=== PATIENT | female | born 1955 | race Caucasian/White ===

== ENCOUNTER 2019-11-17 19:18 | Emergency (ER) | payer BC, OTHER ==
--- OUTSIDE RECORDS SUMMARY | 2019-11-17 19:20 | XMS REPORT | Clinical Summary ---
:1955 Author Organization [facility] Address [address] [place] [address] Care Team Providers Name Role Phone MD Torri Primary Care Provider Allergies Active Allergy Reactions Severity Noted Date Comments Sulfa (Sulfonamide Antibiotics) Anaphylaxis High 8 Medications Medication Sig Dispensed Refills Start Date End Date Status furosemide (LASIX) 20 Take 20 mg by 0 Active mg tablet mouth daily. metoprolol succinate XL Take 50 mg by 0 Active (TOPROL-XL) 50 mg 24 hr mouth daily. tablet dronedarone (MULTAQ) Take 400 mg by 0 Active 400 mg tablet mouth 2 (two) times a day. rivaroxaban (XARELTO) Take 15 mg by 0 Active 15 mg tablet mouth daily. multivitamin with Take 1 tablet by 0 Active minerals tablet mouth daily. Active Problems Problem Noted Date AF (paroxysmal atrial fibrillation) 01/28/2018 Social History Tobacco Use Types Packs/Day Years Used Date Never Smoker Smokeless Tobacco: Never Used Sex Assigned at Date Recorded Not on file Job Start Date Occupation Industry Not on file Not on file Not on file Travel History Travel Start Travel End No recent travel history available. 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
--- OUTSIDE RECORDS SUMMARY | 2019-11-17 19:21 | XMS REPORT | Continuity of Care Document ---
:1955 Author Organization [facility] t Address [address] [place] [address] Care Team Providers Name Role Phone Torri CHAWLA Primary Care Physician Payers Payer Name Policy Type Policy Number Effective Date Expiration Date S ource Problems Condition Condition Condition Status Onset Resolution Last Treating Co mments Source Name Details Category Date Date Treatment Clinician Date AF AF Disease Active 2017-04 [place] (paroxysma (paroxysma 0-12 Me thodi l atrial l atrial 00:00: st fibrillati fibrillati 00 on) on) Allergies, Adverse Reactions, Alerts Allergy Allergy Status Severity Reaction(s) Onset Inactive Treating Comm ents Source Name Type Date Date Clinician Sulfa DA Active [facility] (Sulfona 3-31 [facility] S[facility] DA Active 2018-04 [facility] (Sulfona 1-16 [facility] 00:[facility] Sulfa DA Active SV 2018-04 [facility] ([place]ulf[place] 1-06 [place] mide 00:00: [facility] Antibiot 00 [facility] Sulfa Propensi Active Anaphylaxis 2017-04 [place] (Sulfona ty to 0-12 Methodi mide adverse 00:00: st Antibiot reaction 00 ics) s to drug Social History Social Habit Start Date Stop Date Quantity Comments Source Sex Assigned At [facility] [employer] Smoking Status Start Date Stop Date Source Never smoker [place] t Medications Ordered Filled Start Stop Current Ordering Indication Dosage Frequency Signature Comments Components Source Medication Medication Date Date Medication? Clinician (SIG) Name Name furosemide 2017-04 Yes 20mg QD Take 20 mg [place] (LASIX) 20 0-13 by mouth [place] di mg tablet 11:23: daily. st 43 metoprolol 2017-04 Yes 50mg QD Take 50 mg [place] succinate 0-13 by mouth Method i XL 11:23: daily. st (TOPROL-XL) 43 50 mg 24 hr tablet dronedarone 2017-04 Yes 400mg Q.5D Take 400 [place] (MULTAQ) 0-13 mg by [facility] 400 mg 11:23: mouth 2 st tablet 43 (two) times a day. rivaroxaban 2017-04 Yes 15mg QD Take 15 mg [place] (XARELTO) 0-13 by mouth Method i 15 mg 11:23: daily. st tablet 43 multivitami 2017-04 Yes 1{tbl} QD Take 1 [place] with 0-13 tablet by [facility] minerals 11:23: mouth st tablet 43 daily. Procedures This patient has no known procedures. Plan of Care Planned Activity Planned Date Details Comments Source Future Scheduled 2019-11-18 INFLUENZA VACCINE [place] [facility] Test 00:00:00 [code = INFLUENZA VACCINE] Future Scheduled 2018 65+ PNEUMOCOCCAL [place] [employer] [facility] Test 00:00:00 VACCINE (1 of 2 - PCV13) [code = 65+ PNEUMOCOCCAL VACCINE (1 of 2 - PCV13)] Future Scheduled 2003-06-21 BREAST CANCER [facility] Test 00:00:00 SCREENING [code = BREAST CANCER SCREENING] Future Scheduled 2003-06-21 COLONOSCOPY SCREENING [place] [facility] Test 00:00:00 [code = COLONOSCOPY SCREENING] Future Scheduled 2003-06-21 SHINGLES VACCINES (#1) [place] [facility] Test 00:00:00 [code = SHINGLES VACCINES (#1)] Results Test Description Test Time Test Comments Results Result Sourc e Comments - CT ABD PELVIS 2019-07-18 Name: BRITNEY BETH W/STEPHANIE 15:51:00 [facility] : 1955 Age/S: 64 / F [address] [place] [address] Unit #: [id number] Loc: [place] [address] Phys: Livan Alonso MD Acct: [id number] Dis Date: Status: REG [facility] PHONE #: [phone] Exam Date: 07/18/20191336 FAX #: [phone] Reason: GASTRIC STENOSIS EXAMS: CPT CODE: [id number] CT ABD PELVIS W/CONT 82836 CT ABDOMEN AND PELVIS WITH CONTRAST HISTORY: GASTRIC STENOSIS TECHNIQUE: Helical scan of the abdomen and pelvis was performed from the domes of the diaphragm through the symphysis. Reformatted sagittal and coronal images are included. IV CONTRAST: 100 cc Isovue 300. ORAL CONTRAST: 10 mL Gastrografin diluted with 900 mL water. DLP: 359 mGy-cm COMPARISON: None. FINDINGS: LOWER CHEST: The lung bases are clear. No pleural abnormality. Included mediastinum is grossly normal. LIVER: Multiple hepatic cysts are noted. Otherwise normal appearance of the liver. GALLBLADDER: The gallbladder is absent. SPLEEN: Normal appearance of the spleen. PANCREAS: Normal. ADRENALS: Normal. KIDNEYS: Incidental small left renal cyst measures less than 1 cm. The kidneys are otherwise unremarkable. BOWEL, MESENTERY: Evidence of gastric bypass surgery with multiple clips. No evidence of acute bowel pathology. There is suggestion of constipation. APPENDIX: The appendix is not directly visualized. PERITONEUM: No significant free fluid or extraluminal gas. RETROPERITONEUM: No significant inflammation, mass or adenopathy. Mild atheromatous calcifications noted. No aneurysm. ABDOMINAL WALL: No significant abnormality. PAGE 1 Signed Report (CONTINUED) Name: BRITNEY BETH [facility] : 1955 Age/S: 64 / F [address] [place] [address] Unit #: [id number] Loc: [place] [address] Phys: Livan Alonso MD Acct: [id number] Dis Date: Status: REG [facility] PHONE #: [phone] Exam Date: 07/18/20191336 FAX #: [phone] Reason: GASTRIC STENOSIS EXAMS: CPT CODE: [id number] CT ABD PELVIS W/CONT 67238 <Continued> PELVIS: Absent uterus. Normal appearance of the urinary bladder. No mass, inflammatory change, lymphadenopathy or significant free fluid. No significant inguinal abnormality. MUSCULOSKELETAL: Other than degenerative changes, the bones are intact. IMPRESSION: No acute finding. Hepatic and left renal cysts. Gastric bypass, cholecystectomy, hysterectomy. Constipation. Scoliosis, advanced spondylosis. SL: [id number] at 1551 Reported and signed by: Triston Alvarez M.D. CC: Livan Alonso MD; Ephraim Wild MD Technologist:Ziyad Fletcher, RT(R)(CT) CTDI: DLP: Trnscb Date/Time: 07/18/2019 (6446) [email or web address] Orig Print D/T: S: 07/18/2019 (5687) PAGE 2 Signed Report - XR CHEST 2 V 2019-07-18 FAX: Livan Alonso 10:51:00 H [phone] [place]: St: REG FAX: Ephraim Sarah [phone] Name: BRITNEY BETH [facility] : 1955 Age/S: 64/F [address] [place] [address] Unit #: [id number] Loc: [place] [address] Phys: Livan Alonso MD Acct: [id number] Dis Date: Status: REG [facility] PHONE #: [phone] Exam Date: 07/18/2019 1040 FAX #: [phone] Reason: PRE-OP EGD EXAMS: CPT CODE: [id number] XR CHEST 2 V 00072 Chest 2 view 07/18/2019 HISTORY: Preoperative exam for gastric stenosis No prior exams are available for comparison FINDINGS: No consolidation or pleural effusion is present. Heart size is normal. Aorta is grossly unremarkable. There is no significant vascular congestion or interstitial edema. Right curvature of the lower thoracic spine is present. There are moderate degenerative changes in the mid and lower thoracic spine. There are surgical clips in the right upper quadrant. IMPRESSION: No acute cardiopulmonary process identified. SL: [id number] at 1051 Reported and signed by: Sin Logan M.D. CC: Livan Alonso MD; Ephraim Wild MD Technologist: RT Brant(Rebekah)(M) Trnscrd Date/Time/By: 07/18/2019 (4932) : By: [email or web address] Orig Print D/T: S: 07/18/2019 (9083) PAGE 1 Signed Report BASIC METABOLIC PANEL 2019-07-18 10:10:00 Test Item Value Reference Range Interpretation Comme nts SODIUM (test code = NA) 145 mEq/L 134-147 N POTASSIUM (test code = K) 4.5 mEq/L 3.4-5.0 N CHLORIDE (test code = CL) 114 mEq/L 100-108 H CARBON DIOXIDE (test code = CO2) 28 mEq/L 21-33 N ANION GAP (test code = GAP) 8 0-20 N GLUCOSE (test code = GLU) 88 mg/dL 70-110 N BLOOD UREA NITROGEN (test code = 12 mg/dL 7-18 N BUN) GLOMERULAR FILTRATION RATE (test 62.6 80-90 L Units of measure = ml/min/1.73 code = GFR) m2 CREATININE (test code = CREAT) 0.9 mg/dL 0.6-1.3 N CALCIUM (test code = CA) 8.8 mg/dL 8.0-10.5 N CBC W/AUTO [id number] 09:55:00 Test Item Value Reference Range Interpretation Comments WHITE BLOOD CELL (test code = 4.36 x10 3/uL 4.5-11.0 L WBC) RED BLOOD CELL (test code = 3.84 x10 6/uL 3.54-5.02 N RBC) HEMOGLOBIN (test code = HGB) 10.9 g/dL 11.0-15.0 L HEMATOCRIT (test code = HCT) 35.7 % 33.0-45.0 N MEAN CELL VOLUME (test code = 93.0 fL 81.0-99.0 N MCV) MEAN CELL HGB (test code = MCH) 28.4 pg 27.0-33.0 N MEAN CELL HGB CONCETRATION 30.5 g/dL 33.0-37.0 L (test code = MCHC) RED CELL DISTRIBUTION WIDTH CV 15.9 % 11.5-14.5 H (test code = RDW) RED CELL DISTRIBUTION WIDTH SD 54.7 fL 37.0-54.0 H (test code = RDW-SD) PLATELET COUNT (test code = 232 x10 3/uL 150-400 N PLT) MEAN PLATELET VOLUME (test code 9.0 fL 7.0-9.0 N = MPV) NEUTROPHIL % (test code = NT%) 43.6 % 56.0-77.0 L IMMATURE GRANULOCYTE % (test 0.2 % 0.0-2.0 N code = IG%) LYMPHOCYTE % (test code = LY%) 39.9 % 14.0-32.0 H MONOCYTE % (test code = MO%) 11.0 % 4.8-9.0 H EOSINOPHIL % (test code = EO%) 3.7 % 0.3-3.7 N BASOPHIL % (test code = BA%) 1.6 % 0.0-2.0 N NUCLEATED RBC % (test code = 0.0 % 0-0 N NRBC%) NEUTROPHIL # (test code = NT#) 1.90 x10 3/uL 2.0-7.6 L IMMATURE GRANULOCYTE # (test 0.01 x10 3/uL 0.00-0.03 N code = IG#) LYMPHOCYTE # (test code = LY#) 1.74 x10 3/uL 1.0-3.8 N MONOCYTE # (test code = MO#) 0.48 x10 3/uL 0.1-0.8 N EOSINOPHIL # (test code = EO#) 0.16 x10 3/uL 0.0-0.2 N BASOPHIL # (test code = BA#) 0.07 x10 3/uL 0.0-0.2 N NUCLEATED RBC # (test code = 0.00 x10 3/uL 0.0-0.1 N NRBC#) MANUAL DIFF REQUIRED (test code NO = MDIFF) CBC W/AUTO [id number] 09:55:00 Test Item Value Reference Range Interpretation Comments WHITE BLOOD CELL (test code = 4.36 x10 3/uL 4.5-11.0 L WBC) RED BLOOD CELL (test code = 3.84 x10 6/uL 3.54-5.02 N RBC) HEMOGLOBIN (test code = HGB) 10.9 g/dL 11.0-15.0 L HEMATOCRIT (test code = HCT) 35.7 % 33.0-45.0 N MEAN CELL VOLUME (test code = 93.0 fL 81.0-99.0 N MCV) MEAN CELL HGB (test code = MCH) 28.4 pg 27.0-33.0 N MEAN CELL HGB CONCETRATION 30.5 g/dL 33.0-37.0 L (test code = MCHC) RED CELL DISTRIBUTION WIDTH CV 15.9 % 11.5-14.5 H (test code = RDW) RED CELL DISTRIBUTION WIDTH SD 54.7 fL 37.0-54.0 H (test code = RDW-SD) PLATELET COUNT (test code = 232 x10 3/uL 150-400 N PLT) MEAN PLATELET VOLUME (test code 9.0 fL 7.0-9.0 N = MPV) NEUTROPHIL % (test code = NT%) 43.6 % 56.0-77.0 L IMMATURE GRANULOCYTE % (test 0.2 % 0.0-2.0 N code = IG%) LYMPHOCYTE % (test code = LY%) 39.9 % 14.0-32.0 H MONOCYTE % (test code = MO%) 11.0 % 4.8-9.0 H EOSINOPHIL % (test code = EO%) 3.7 % 0.3-3.7 N BASOPHIL % (test code = BA%) 1.6 % 0.0-2.0 N NUCLEATED RBC % (test code = 0.0 % 0-0 N NRBC%) NEUTROPHIL # (test code = NT#) 1.90 x10 3/uL 2.0-7.6 L IMMATURE GRANULOCYTE # (test 0.01 x10 3/uL 0.00-0.03 N code = IG#) LYMPHOCYTE # (test code = LY#) 1.74 x10 3/uL 1.0-3.8 N MONOCYTE # (test code = MO#) 0.48 x10 3/uL 0.1-0.8 N EOSINOPHIL # (test code = EO#) 0.16 x10 3/uL 0.0-0.2 N BASOPHIL # (test code = BA#) 0.07 x10 3/uL 0.0-0.2 N NUCLEATED RBC # (test code = 0.00 x10 3/uL 0.0-0.1 N NRBC#) MANUAL DIFF REQUIRED (test code NO = MDIFF) - MRI C-SPINE W/O [id number] 13:20:00 Patient Name: BRITNEY BETH Unit No: [id number] EXAMS: CPT CODE: [id number] MRI C-SPINE W/O CONT [id number] TECHNIQUE: Multiplanar, multisequence MRI examination performed of the cervical spine without intravenous contrast material. COMPARISON: None available. FINDINGS: Alignment: Grade 1 spondylolisthesis of C4-C5 and C7-T1. Grade 1 retrolisthesis of C5-C6 Bone Lesion / Fracture: None present. CervicalSpinal Cord: No cord expansion or abnormal signal. Prevertebral / Paraspinal Soft Tissues: Unremarkable. C2/3: Severe bilateral facet hypertrophy is present. There is moderate left, mild right foraminal stenosis as well as mild central canal stenosis. C3/4: Right asymmetric disc bulge osteophyte complex. Bilateral facet and uncovertebralhypertrophy are greater on the right. There is mild left, severe right foraminal stenosis as well as moderate central canal stenosis. C4/5: Grade 1 spondylolisthesis. Right asymmetric disc bulge. Right-sided facet hypertrophy and fusion. There is mild to moderateright foraminal stenosis. No significant left foraminal stenosis. Mild central canal stenosis is present. C5/6: Grade 1 retrolisthesis. Diffuse disc bulge osteophyte complex is noted as well as severe bilateral facet and uncovertebral hypertrophy. There is moderate to severe left, severe right foraminal stenosis as well as severe central canal stenosis. C6/7: No significant disc bulge or herniation. Broad disc bulge osteophyte complex is noted as well as severe bilateral uncovertebral hypertrophy and right- sided facet degeneration. Moderate bilateral foraminal stenosis is present as well as moderate to severe central canal stenosis. C7/T1: Grade 1 spondylolisthesis. Diffuse disc bulge is noted as well as moderate bilateral facet hypertrophy. There is mild central canal stenosis as well as mild bilateral foraminal narrowing. IMPRESSION: Advanced multilevel cervical spondylosis, greatest at C5-C6, where there is severe central canal stenosis. at 1320 Reported and signed by: Karl Villeda M.D. [facility] NAME: BRITNEY BETH [address] [place] [address] PHYS: Ryland Yusuf MD : 1955 AGE: 63 SEX: F [place] [id number] LOC: Y.MRI PHONE #: [phone] EXAM DATE: 02/10/2019 STATUS: DEP CLI FAX #: [phone] RAD #: D/C DT PAGE 1 Signed Report (CONTINUED) Patient Name: BRITNEY BETH Unit No: [id number] EXAMS: CPT CODE: [id number] MRI C-SPINE W/O CONT [id number] <Continued> CC: Bobby Hayes M.D. Technologist: Sourav Castelan(R) Transcribed D/ (1320) SanjayMichelle [facility] NAME: BRITNEY BETH [address] [place] [address] PHYS: Ryland Yusuf MD : 1955 AGE: 63 SEX: F [place] [address] LOC: Y.MRI PHONE #: [phone] EXAM DATE: 02/10/2019 STATUS: DEP CLI FAX #: [phone] RAD #: D/C DT PAGE 2 Signed Report Patient Name: BRITNEY BETH Unit No: [id number] EXAMS: CPT CODE: [id number] MRI C-SPINE W/O CONT [id number] <Continued> Orig Print D/T: S: 02/12/2019 (1323) [facility] NAME: BRITNEY BETH [address] [place] [address] PHYS: Ryland Yusuf MD : 1955 AGE: 63 SEX: F [place] [address] LOC: Y.MRI PHONE #: [phone] EXAM DATE: 02/10/2019 STATUS: ROSANNE DEMPSEY FAX #: [phone] RAD #: D/C DT PAGE 3 Signed Report
[2019-11-17] MEDS ORDERED: HYDROCODONE/APAP 5/325 MG TAB ONE (19:49)
--- NOTE | 2019-11-17 21:08 | RAD REPORT ---
EXAM DESCRIPTION: RAD - Hand Left 3 View - 11/17/2019 8:33 pm CLINICAL HISTORY: trauma, trip and fall with left hand pain COMPARISON: None. FINDINGS: No fracture, dislocation or periosteal reaction noted. No acute or destructive bone proces s identifiable. Patient has mild degenerative change at the trapezial first metacarpal joint. IP join t degenerative changes are present but there is normal. No foreign body or other soft tissue abnormal ity. IMPRESSION: No fracture or other acute left hand finding.
--- NOTE | 2019-11-17 21:09 | RAD REPORT ---
EXAM DESCRIPTION: RAD - Hand Right 3 View - 11/17/2019 8:33 pm CLINICAL HISTORY: trauma, trip and fall right hand pain COMPARISON: No comparisonsNone. FINDINGS: No fracture is identified. There is no dislocation or periosteal reaction noted. No acute or destructive bone finding. Patient has minimal degenerative change at the trapezial first metacarp al articulation. No foreign body in the soft tissues. IMPRESSION: No fracture or other acute right hand finding.
--- NOTE | 2019-11-17 21:11 | RAD REPORT ---
EXAM DESCRIPTION: RAD - Knee Right 3 View - 11/17/2019 8:33 pm CLINICAL HISTORY: trauma, trip and fall, leg pain COMPARISON: No comparison FINDINGS: Moderate amount of fluid is present in the joint space. There is a fat fluid level identif iable. Distal femur and patella are intact. An oblique fracture traverses the proximal tibia. There is a fracture line that extends from the tibi al spine to the medial margin of the tibial metaphyseal -diaphyseal junction. Fracture extends to wit hin the joint space. No depression of the medial tibial plateau. There is no measurable distraction a long the fracture line. Proximal fibula is intact. No foreign body in the soft tissues. IMPRESSION: Intra-articular medial tibial plateau fracture. No depression of the medial fracture fra gment. Lipoma hemarthrosis
--- NOTE | 2019-11-17 23:18 | ER ---
Nurse's Notes [facility] Name: Doris Saleh Age: 64 yrs Sex: Female : 1955 Arrival Date: 11/17/2019 Time: 19:22 Bed 5 Private MD: Diagnosis: Right Tibial Plateau Fracture;Hand Contusion Presentation: 11/16 19:32 Chief complaint: Patient states: [place] Right knee pain ll1 and swelling since. Bruising noted to both hands. No LOC. Coronavirus screen: Client denies travel out of the [place] in the last 14 days. At this time, the client does not indicate any symptoms associated with coronavirus-19. Ebola Screen: Patient denies travel to an Ebola-affected area in the 21 days before illness onset. Initial Sepsis Screen: Does the patient meet any 2 criteria? No. Patient's initial sepsis screen is negative. Does the patient have a suspected source of infection? No. Patient's initial sepsis screen is negative. Risk Assessment: Do you want to hurt yourself or someone else? Patient reports no desire to harm self or others. Onset of symptoms was November 17, 2019. 19:32 Method Of Arrival: Ambulatory ll1 19:32 Acuity: CALI 4 ll1 Triage Assessment: 19:47 Injury Description: Bruise sustained to right hand, left hand and right knee. rr5 Historical: - Allergies: 19:35 Sulfa (Sulfonamide Antibiotics); ll1 - PMHx: 19:35 Hypertension; Atrial Fib; ll1 - PSHx: 19:35 ablation; Gastric Bypass; back surgery; ll1 - Immunization history:: Adult Immunizations up to date. - Social history:: Smoking status: Patient denies any tobacco usage or history of. Patient uses alcohol, only on a social basis. Patient/guardian denies using street drugs. Screenin:30 Abuse screen: Denies threats or abuse. Denies injuries from another. Nutritional rr5 screening: No deficits noted. Tuberculosis screening: No symptoms or risk factors identified. Fall Risk Fall in past 12 months (25 points). Gait- Impaired (20 pts.). Total Gooden Fall Scale indicates High Risk Score (45 or more points). Fall prevention measures have been instituted. Side Rails Up X 2 Frequent Obs/Assessments Occuring As available patient and family educated on Fall Prevention Program and Strategies. Assessment: 19:45 General: Appears in no apparent distress. uncomfortable, Behavior is calm, cooperative, rr5 appropriate for age. Pain: Complains of pain in right hand, left hand and right knee Pain currently is 3 out of 10 on a pain scale. at worst was 10 out of 10 on a pain scale. Quality of pain is described as aching, Pain began suddenly, Is intermittent. Neuro: Level of Consciousness is awake, alert, obeys commands, Oriented to person, place, time, situation. Cardiovascular: Capillary refill < 3 seconds Patient's skin is warm and dry. Respiratory: Airway is patent Respiratory effort is even, unlabored, Respiratory pattern is regular, symmetrical. GI: No signs and/or symptoms were reported involving the gastrointestinal system. : No signs and/or symptoms were reported regarding the genitourinary system. EENT: No signs and/or symptoms were reported regarding the EENT system. Derm: Skin is intact, is healthy with good turgor, Skin temperature is warm Bruising that is dark purple, on right hand, left hand and right knee. Musculoskeletal: Capillary refill < 3 seconds, Swelling present in right knee. 20:50 Reassessment: Patient appears in no apparent distress at this time. Patient is alert, rr5 oriented x 3, equal unlabored respirations, skin warm/dry/pink. Patient states symptoms have improved. 21:30 Reassessment: Patient appears in no apparent distress at this time. Patient is alert, rr5 oriented x 3, equal unlabored respirations, skin warm/dry/pink. reassess by ED provider plan to consult to specialist orthopedics. 22:10 Reassessment: Patient appears in no apparent distress at this time. Patient is alert, rr5 oriented x 3, equal unlabored respirations, skin warm/dry/pink. send to CT scan. 23:31 Reassessment: Patient appears in no apparent distress at this time. Patient is alert, rr5 oriented x 3, equal unlabored respirations, skin warm/dry/pink. discharge instruction given and explained without complaints made. Vital Signs: 19:32 BP 138 / 85; Pulse 65; Resp 17; Temp 98.6; Pulse Ox 100% ; Pain 10/10; ll1 21:00 BP 119 / 79; Pulse 60; Resp 16; Pulse Ox 98% on R/A; rr5 22:00 BP 136 / 86; Pulse 69; Resp 18; Pulse Ox 98% on R/A; rr5 22:30 BP 136 / 85; Pulse 59; Resp 16; Pulse Ox 98% on R/A; rv 23:25 BP 121 / 93; Pulse 66; Resp 16; Temp 98.3; Pulse Ox 98% on R/A; rv ED Course: 19:22 Patient arrived in ED. cl3 19:23 Nilesh Dykes MD is Attending Physician. mh7 19:26 Naresh Gonzales, RN is Primary Nurse. rr5 19:30 Pulse ox on. NIBP on. rr5 19:34 Triage completed. ll1 19:34 Arm band placed on Patient placed in an exam room, on a stretcher. ll1 19:45 Patient has correct armband on for positive identification. Placed in gown. Bed in low rr5 position. Call light in reach. Side rails up X2. 20:33 Knee Right 3 View XRAY In Process Unspecified. EDMS 20:33 Hand Right 3 View XRAY In Process Unspecified. EDMS 20:33 Hand Left 3 View XRAY In Process Unspecified. EDMS 21:23 Initiated transfer with [facility] and spoke with Gricelda Selby. Gricelda said she tt3 would start working on everything and call back. 21:39 Gricelda Selby called back with the ortho to speak with Dr. Dykes. tt3 22:33 Knee Right Wo Cont In Process Unspecified. EDMS 22:[address] [facility] and Dr. Dykes needed to speak with ortho. I spoke with tt3 Gricelda Selby and transferred the call. 23:24 Pt to be discharged. Called Gricelda Selby back at [facility] and tt3 informed her. 23:26 No provider procedures requiring assistance completed. Patient did not have IV access rv during this emergency room visit. Crutch training done. Sonu wrap to right knee Knee immobilizer applied on right knee. 23:31 Primary Nurse role handed off by Naresh Gonzales, RN rr5 Administered Medications: 19:44 Drug: [place] 5 mg-325 mg 1 tabs {Note: rass 0.} Route: PO; rr5 23:26 Follow up: Response: No adverse reaction; Marked relief of symptoms; Pain is decreased; rv RASS: Alert and Calm (0) Outcome: 23:18 Discharge ordered by . orion 23:28 Discharged to home via wheelchair, with crutches, with family. rv 23:28 Condition: good 23:28 Discharge instructions given to patient, Instructed on discharge instructions, follow up and referral plans. medication usage, crutch walking, Demonstrated understanding of instructions, follow-up care, medications, crutch walking, Prescriptions given X 1. 23:28 Patient left the ED. rv 23:38 Patient left the ED. rr5 Signatures: Dispatcher [employer] EDMS Ludwig Post RN RN rv Naresh Gonzales RN RN rr5 Chris Chung3 Ronak Chung RN RN ll1 Nilesh Dykes MD MD 7 Cordell Ba tt3
--- NOTE | 2019-11-17 23:19 | EDPHYS ---
Physician Documentation [facility] Name: Doris Saleh Age: 64 yrs Sex: Female : 1955 Arrival Date: 11/17/2019 Time: 19:22 Bed 5 Private MD: ED Physician Nilesh Dykes HPI: 11/16 19:40 This 64 yrs old Female presents to ER via Ambulatory with complaints of Knee mh7 Injury. 19:40 Details of fall: The patient fell from an upright position, while walking. Onset: The mh7 symptoms/episode began/occurred today, 5 hour(s) ago. Associated injuries: The patient sustained right knee, abrasion, contusion, painful injury, right hand, contusion, ecchymosis, left hand, contusion, ecchymosis. Severity of symptoms: At their worst the symptoms were moderate, earlier today, in the emergency department the symptoms have improved, moderately. Patient states that she tripped and fell due to her shoe getting stuck to floor while walking today. She fell onto her right knee and hands. Denies any other injuries or LOC. She denies having any symptoms prior to falling including headache, chest pain, abdominal pain, nausea, vomiting, SOB, dizziness, numbness/tingling, or weakness.. Historical: - Allergies: 19:35 Sulfa (Sulfonamide Antibiotics); ll1 - PMHx: 19:35 Hypertension; Atrial Fib; ll1 - PSHx: 19:35 ablation; Gastric Bypass; back surgery; ll1 - Immunization history:: Adult Immunizations up to date. - Social history:: Smoking status: Patient denies any tobacco usage or history of. Patient uses alcohol, only on a social basis. Patient/guardian denies using street drugs. ROS: 19:40 Constitutional: Negative for fever, chills, and weight loss, Eyes: Negative for injury, mh7 pain, redness, and discharge, ENT: Negative for injury, pain, and discharge, Neck: Negative for injury, pain, and swelling, Cardiovascular: Negative for chest pain, palpitations, and edema, Respiratory: Negative for shortness of breath, cough, wheezing, and pleuritic chest pain, Abdomen/GI: Negative for abdominal pain, nausea, vomiting, diarrhea, and constipation, Back: Negative for injury and pain, : Negative for injury, bleeding, discharge, and swelling, Neuro: Negative for headache, weakness, numbness, tingling, and seizure, Psych: Negative for depression, anxiety, suicide ideation, homicidal ideation, and hallucinations, Allergy/Immunology: Negative for hives, rash, and allergies, Endocrine: Negative for neck swelling, polydipsia, polyuria, polyphagia, and marked weight changes, Hematologic/Lymphatic: Negative for swollen nodes, abnormal bleeding, and unusual bruising. Exam: 19:40 Constitutional: This is a well developed, well nourished patient who is awake, alert, mh7 and in no acute distress. Head/Face: Normocephalic, atraumatic. Eyes: Pupils equal round and reactive to light, extra-ocular motions intact. Lids and lashes normal. Conjunctiva and sclera are non-icteric and not injected. Cornea within normal limits. Periorbital areas with no swelling, redness, or edema. Neck: Trachea midline, no thyromegaly or masses palpated, and no cervical lymphadenopathy. Supple, full range of motion without nuchal rigidity, or vertebral point tenderness. No Meningismus. Chest/axilla: Normal chest wall appearance and motion. Nontender with no deformity. No lesions are appreciated. Cardiovascular: Regular rate and rhythm with a normal S1 and S2. No gallops, murmurs, or rubs. Normal PMI, no JVD. No pulse deficits. Respiratory: Lungs have equal breath sounds bilaterally, clear to auscultation and percussion. No rales, rhonchi or wheezes noted. No increased work of breathing, no retractions or nasal flaring. Abdomen/GI: Soft, non-tender, with normal bowel sounds. No distension or tympany. No guarding or rebound. No evidence of tenderness throughout. Back: No spinal tenderness. No costovertebral tenderness. Full range of motion. Skin: Warm, dry with normal turgor. Normal color with no rashes, no lesions, and no evidence of cellulitis. 19:40 Neuro: Awake and alert, GCS 15, oriented to person, place, time, and situation. Cranial nerves II-XII grossly intact. Motor strength 5/5 in all extremities. Sensory grossly intact. Cerebellar exam normal. Normal gait. Psych: Awake, alert, with orientation to person, place and time. Behavior, mood, and affect are within normal limits. 19:40 Musculoskeletal/extremity: Extremities: noted in the right knee: abrasion, contusion, ecchymosis, tenderness, anterior aspect, noted in the right hand: contusion, ecchymosis, palmar aspect, noted in the left hand: contusion, ecchymosis, palmar aspect, ROM: limited active range of motion due to pain, in the right knee, limited passive range of motion due to pain, in the right knee, Circulation is intact in all extremities. Pulses: are normal with no appreciated deficits, Perfusion: the patient is normally perfused throughout, Perfusion: the extremity is normally perfused throughout, Calf tenderness, is absent, Edema, is not appreciated, Sensation intact. Compartment Syndrome exam of affected extremity: is normal. no numbness, no tingling, no sensation deficit, no palor, no weak pulses, Joints: All joints are normal except the right knee displays painful range of motion, tenderness, Weight bearing: Tendon exam: specific tendon testing normal through active and passive range of motion DVT Exam: no pain, no swelling, no tenderness, negative Homans' sign noted on exam, no appreciated bluish discoloration, no erythema, no increased warmth, Calves: are non-tender, have equal circumference. 19:51 Musculoskeletal/extremity: Weight bearing: able to fully bear weight, limping. [facility] Vital Signs: 19:32 BP 138 / 85; Pulse 65; Resp 17; Temp 98.6; Pulse Ox 100% ; Pain 10/10; ll1 21:00 BP 119 / 79; Pulse 60; Resp 16; Pulse Ox 98% on R/A; rr5 22:00 BP 136 / 86; Pulse 69; Resp 18; Pulse Ox 98% on R/A; rr5 22:30 BP 136 / 85; Pulse 59; Resp 16; Pulse Ox 98% on R/A; rv 23:25 BP 121 / 93; Pulse 66; Resp 16; Temp 98.3; Pulse Ox 98% on R/A; rv Procedures: 23:36 Splinting: Splint applied to right knee using knee immobilizer, applied by nurse. 7 Examined by me, post splint application: neurovascular intact, 2+ distal pulses palpable, brisk capillary refill noted, Patient tolerated well. MDM: 19:38 Patient medically screened. [facility] 23:11 Differential diagnosis: abrasion, contusion, fracture. Data reviewed: vital signs, [facility] nurses notes, radiologic studies, CT scan, plain films. Data interpreted: Pulse oximetry: on room air is 98 %. Interpretation: normal. Counseling: I had a detailed discussion with the patient and/or guardian regarding: the historical points, exam findings, and any diagnostic results supporting the discharge/admit diagnosis, the presence of at least one elevated blood pressure reading (>120/80) during this emergency department visit, radiology results, the need for outpatient follow up, for definitive care, a orthopedic surgeon. Response to treatment: the patient's symptoms have markedly improved after treatment. Physician consultation:. Other consultation: Consult with Dr. Langley, Orthopedic Surgery, [facility]. 11/17 05:52 ED course: Case discussed with Dr. Langley, Orthopedics, [facility]. He [facility] recommended placing patient in knee immobilizer and having her follow up in office next week. He advised that patient will need surgery but not on an emergent basis so no need to transfer. This was discussed with the patient who understood and agreed with the treatment plan.. 11/16 19:39 Order name: Knee Right 3 View XRAY; Complete Time: 21:14 [facility] 11/16 19:39 Order name: Hand Right 3 View XRAY; Complete Time: 21:14 7 11/16 19:39 Order name: Hand Left 3 View XRAY; Complete Time: 21:14 [facility] 11/16 21:54 Order name: Knee Right Wo Cont EDMS 11/16 23:32 Order name: Knee Immobilizer; Complete Time: 23:32 rr5 11/16 23:32 Order name: Crutches; Complete Time: 23:32 rr5 Administered Medications: 11/16 19:44 Drug: [place] 5 mg-325 mg 1 tabs {Note: rass 0.} Route: PO; rr5 23:26 Follow up: Response: No adverse reaction; Marked relief of symptoms; Pain is decreased; rv RASS: Alert and Calm (0) Disposition: 11/17 06:03 Co-signature as Attending Physician, Nilesh Dykes MD. [facility] Disposition: 11/17/19 23:18 Discharged to Home. Impression: Right Tibial Plateau Fracture, Hand Contusion. - Condition is Stable. - Discharge Instructions: Nondisplaced Tibial Plateau Fracture, Knee Fracture, Adult, Hand Contusion, [id number]. - Prescriptions for Tylenol- Codeine #3 300-30 mg Oral Tablet - take 2 tablet by ORAL route every 6 hours As needed; 30 tablet. - Medication Reconciliation Form, Thank You Letter, Antibiotic Education, Prescription Opioid Use form. - Follow up: Private Physician; When: 2 - 3 days; Reason: Worsening of condition, Recheck today's complaints, Continuance of care, Re-evaluation by your physician. - Problem is new. - Symptoms have improved. - Notes: You are to call [facility] Orthopedic Surgery on 11/20/2019 at [phone] to schedule an appointment. They will be expecting your call. Signatures: Dispatcher [employer] [facility] Ludwig Post RN RN rv Naresh Gonzales RN RN rr5 Ronak Chung RN RN ll1 Nilesh Dykes MD MD 7 Corrections: (The following items were deleted from the chart) 11/16 21:54 21:51 CT RIGHT KNEE WO CONTRAST ordered. [facility] 23:28 23:18 11/17/2019 23:18 Discharged to Home. Impression: Right Tibial Plateau Fracture; rv Hand Contusion. Condition is Stable. Forms are Medication Reconciliation Form, Thank You Letter, Antibiotic Education, Prescription Opioid Use. Follow up: Private Physician; When: 2 - 3 days; Reason: Worsening of condition, Recheck today's complaints, Continuance of care, Re-evaluation by your physician. Problem is new. Symptoms have improved. [facility] 23:38 23:28 11/17/2019 23:18 Discharged to Home. Impression: Right Tibial Plateau Fracture; rr5 Hand Contusion. Condition is Stable. Discharge Instructions: Nondisplaced Tibial Plateau Fracture, Knee Fracture, Adult, Hand Contusion, [id number]. Prescriptions for Tylenol-Codeine #3 300-30 mg Oral Tablet - take 2 tablet by ORAL route every 6 hours As needed; 30 tablet. and Forms are Medication Reconciliation Form, Thank You Letter, Antibiotic Education, Prescription Opioid Use. Follow up: Private Physician; When: 2 - 3 days; Reason: Worsening of condition, Recheck today's complaints, Continuance of care, Re-evaluation by your physician. Problem is new. Symptoms have improved. rv
[2019-11-17 23:36] VITALS: O2SAT 98
[2019-11-17 23:40] VITALS: BP 121/93; TEMP 98.3
--- NOTE | 2019-11-20 11:12 | RAD REPORT ---
EXAM DESCRIPTION: CT KNEE WITHOUT IV CONTRAST CLINICAL HISTORY: Trauma, fall, pain TECHNIQUE: Contiguous axial CT images obtained through the right knee without IV contrast. Coronal a nd sagittal reformatted images were provided. This exam was performed according to our departmental dose-optimization program, which includes autom ated exposure control, adjustment of the mA and/or kV according to patient size and/or use of iterati ve reconstruction technique. COMPARISON: None available for comparison FINDINGS: Bones: Osseous structures are osteopenic. Minimally comminuted obliquely oriented fracture extending from the intercondylar eminence to the medial metadiaphysis. There is a component extendin g along the anterior medial aspect of the lateral tibial plateau with minimal depression along the an terior cortex. No significant step-off at the articular surface. Joints: Moderate lipohemarthrosis. Soft tissues: Deep soft tissue edema about the knee. IMPRESSION: Intra-articular proximal tibial fracture as above. Moderate lipohemarthrosis. Electronically signed by: Trae Underwood MD 11/17/2019 10:50 PM CDT Due to temporary technical issues with the PACS/Fluency reporting system, reports are being signed by the in house radiologist without review as a courtesy to ensure prompt reporting. The interpreting r adiologist is fully responsible for the content of the report.
== END 2019-11-17 23:38 | disposition home or self-care (01) ==
LOC: ER 19:18
DX: S82.141A Displaced bicondylar fracture of right tibia, initial encounter for closed fracture (principal); S60.221A Contusion of right hand, initial encounter; W01.0XXA Fall on same level from slipping, tripping and stumbling without subsequent striking against object, initial encounter; Y93.01 Activity, walking, marching and hiking; Y92.9 Unspecified place or not applicable; I10 Essential (primary) hypertension; Z88.2 Allergy status to sulfonamides; Z98.84 Bariatric surgery status
CPT/HCPCS: 73700; 99284

== ENCOUNTER 2024-12-04 10:51 | Emergency (ER) | payer OTHER ==
--- OUTSIDE RECORDS SUMMARY | 2024-12-04 10:55 | XMS REPORT | Clinical Summary ---
Author Name Unknown Organization [facility] Address [address] [place] [address] Care Team Providers Care Creative Writing English Professor Name Role Phone Bernarda Bowden MD Unavailable [phone] Jelani Torres MD Primary Care Provider [phone] Sushma Lewis MD Unavailable Padilla Alvarez MD Unavailable [phone] Ynes Shafer MD Unavailable [phone] Mansoor-Vida Guevara MD Unavailable [phone] Yaritza Solano MD Unavailable [phone] Allergies Active Allergy Reactions Criticality Noted Date Comments Adhesive Dermatitis 12/19/2020 Paper tape ok Docetaxel Shortness Of Breath,Other (See Comments) High 03/07/2021 Facial Flushing, back pain, swelling of the lips. Diphenhydramine 50mg, Hydrocortisone 100mg, & 2L O2 at 98% given. Chemo placed on hold. Latex, Natural Rubber Rash Low 12/19/2020 unsure Sulfa (Sulfonamide Antibiotics) Anaphylaxis,Hives,S hortness Of Breath High 09/22/2017 Medications * This document contains information received from the source organization and may not represent a complete record from that organization. carvedilol (COREG) 25 mg tablet Take 1 tablet (25 mg) by mouth daily. Active Disabled Parking PlacardIndicati ons:Infiltratin g duct carcinoma, NOS of upper-inner quadrant of breast <Female; Right> I am requesting a disabled parking placard for this patient because he/she meets the [employer] of [employer] criteria for disabilities. The patient will need the disabled parking placard for this length of time: Temporary disability until (enter date): 03/28/2022. 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 2 Active furosemide (LASIX) 20 mg tablet Take 1 tablet (20 mg) by mouth daily. Active sertraline (ZOLOFT) 50 mg tablet Take 1 tablet (50 mg) by mouth every morning. Active spironolactone (ALDACTONE) 25 mg tablet Take 1 tablet (25 mg) by mouth daily as needed. 3 Active meloxicam (MOBIC) 7.5 mg tablet Take 1 tablet (7.5 mg) by mouth twice daily. 0 Active liothyronine (CYTOMEL) 5 mcg tablet Take 1 tablet (5 mcg) by mouth daily. 3 Active HYDROcodone-evelia taminophen (NORCO) 5 mg-325 mg per tablet 3 Active abaloparatide (Tymlos) 80 mcg (3,120 mcg/1.56 mL) pnij Inject 80 mcg under the skin. 3 Active LORazepam (ATIVAN) 0.5 mg tablet Active metoclopramide (REGLAN) 10 mg tablet Active triamcinolone (KENALOG) 0.1% cream APPLY TOPICALLY TO THE AFFECTED AREA TWICE DAILY FOR 7 TO 10 DAYS OR LESS. THEN NEEDED. APPLY SPARINGLY. AVOID FACE Active valACYclovir (VALTREX) 1000 mg tablet Active tamoxifen (NOLVADEX) 20 mg tabletIndicatio ns:Infiltrating duct carcinoma, NOS of upper-inner quadrant of breast <Female; Right> Take 1 tablet (20 mg) by mouth daily. 90 tablet 3 4 Active Additional Information Patient not taking.Reason: No longer taking, Reported on 08/25/2024 minoxidil 2.5 mg tablet Take 2 tablets (5 mg) by mouth daily. 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 Medial knee pain likely pes anserine issues - continue walking - off of all pain meds Medications: NSAIDs as needed, Ca/Vit D Weight Bearing Status: WBAT PT / OT: Range of motion exercises and isometric muscles strengthening exercises were demonstrated with the patient. RTC: 3 mos telemedicine Radiographs at next visit: none Hypertension 02/16/2019 Paroxysmal atrial fibrillation 01/28/2018 Atrial fibrillation Hypertensive heart failure Transient cerebral ischemia alf dual antiplatelet drug therapy indicat ed Overview (12/28/2020): On xarelto for afib/aflutter Encounters Date Type Department Care Team Description 09/14/2024 Refill MD [facility] in [facility] Oncology [address] [place] [address] [address] [place] [address] Vida Devlin MD Infiltrating duct carcinoma, NOS of upper-inner quadrant of breast <Female; Right> 09/13/2024 9:20 AM CDT Telemedicine MD [facility] in [facility] Oncology [address] [place] [address] [address] [place] [address] Vida Devlin MD Infiltrating duct carcinoma, NOS of upper-inner quadrant of breast <Female; Right> (Primary Dx); Fatigue; Headache, not otherwise specified 09/12/2024 11:30 AM CDT Ancillary Procedure [facility] MRI [address] [facility], [address]th [place] [address] SilverpMileyma, PSYCH ASSISTANT Headache, not otherwise specified 09/04/2024 Orders Only MD [facility] in [facility] Oncology [address] [place] [address] [address] [place] [address] Jaylyn Urbina, PSYCH ASSISTANT 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 (Primary Dx) 09/01/2024 8:10 AM CDT - 09/01/2024 11:59 PM CDT Hospital Encounter CT [facility] Diagnostic [facility] [address] [facility], 3rd [place] [address] Vida Devlin MD Infiltrating duct carcinoma, NOS of upper-inner quadrant of breast <Female; Right>; Fatigue Discharge Disposition: Home 09/01/2024 Orders Only Neuroradiology [address] [place] [address] Eric Linares MD 09/01/2024 Orders Only MD [facility] in [facility] Oncology [address] [place] [address] [address] [place] [address] UtgustavopMileyma, PSYCH ASSISTANT Headache, not otherwise specified (Primary Dx) 08/25/2024 9:40 AM CDT Follow-Up MD [facility] in [facility] Medical Oncology [address] [place] [address] [address] [place] [address] Jaylyn Urbina APRN Nwosu-Iheme, Adaeze, MD Infiltrating duct carcinoma, NOS of upper-inner quadrant of breast <Female; Right> (Primary Dx); Fatigue 08/25/2024 Orders Only Neuroradiology [address] [place] [address] Cedric Small MD 08/25/2024 Travel 07/19/2024 10:00 AM CDT Follow-Up MD [facility] in [facility] [address] [place] [address] Padilla Alvarez MD Acquired absence of bilateral breasts 07/19/2024 Travel 05/31/2024 Orders Only MD [facility] in [facility] [address] [place] [address] Elisabeth Galicia PA Acquired absence of bilateral breasts (Primary Dx) 02/22/2024 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 Follow-Up MD [facility] in [facility] [address] [facility] [address] [place] [address] Vida Devlin MD Infiltrating duct carcinoma, NOS of upper-inner quadrant of breast <Female; Right> 02/22/2024 Travel after 12/05/2023 Immunizations Immunization Administration Dates Next Due Moderna SARS-CoV-2 Vaccination 06/14/2020,2020 Surgical History Surgery Date Site/Laterality Comments APPENDECTOMY 04/19/1991 - 04/18/1992 AUGMENTATION MAMMAPLASTY W/PROSTHETIC IMPLANT 04/19/2009 - 04/18/2010 retropectoral, Saline CHOLECYSTECTOMY HYSTERECTOMY 04/19/1991 - 04/18/1992 SALPINGOOPHORECTOMY 04/19/1991 - 04/18/1992 N/A unilateral CARDIAC ELECTROPHYSIOLOGY MAPPING AND ABLATION 04/19/2011 - 04/18/2012 x4 SEPTOPLASTY NASAL 04/19/1979 - 04/18/1980 GASTRIC BYPASS 04/19/2008 - 04/18/2009 BACK SURGERY 04/19/1984 - 04/18/1985 BACK SURGERY 04/19/1992 - 04/18/1993 LEG SURGERY Right Tibial plate REPAIR OF REDUCIBLE INGUINAL HERNIA Right MALIGNANT SKIN LESION EXCISION Multiple (face head, shoulder VT MASTECTOMY SIMPLE COMPLETE 01/20/2021 Breast/Bila teral Procedure: SKIN SPARING TOTAL MASTECTOMY; Surgeon: Jelani Torres MD; [facility]; Service: BREAST Medical devices from this surgery are in the Medical Devices section. VT INTRAOP SENTINEL LYMPH NO DE ID W/DYE INJECTION 01/20/2021 Breast/Right Procedure: INTRAOPERATIVE LYMPHATIC MAPPING; Surgeon: Jelani Torres MD; Location[facility]; Service: BREAST Medical devices from this surgery are in the Medical Devices section. VT BX/EXC LYMPH NODE OPEN DE EP AXILLARY NODE 01/20/2021 Axilla/Right Procedure: SENTINEL NODE BIOPSY - AXILLA; Surgeon: Jelani Torres MD; Location[facility]; Service: BREAST Medical devices from this surgery are in the Medical Devices section. VT INJ RADIOACTIVE TRACER FO R ID OF SENTINEL NODE 01/20/2021 Breast/Right Procedure: ISOTOPE INJECTION FOR SENTINEL NODE BIOPSY; Surgeon: Jelani Torres MD; [facility]; Service: BREAST Medical devices from this surgery are in the Medical Devices section. VT REMOVAL INTACT BREAST IMPLANT 01/20/2021 Breast/Bilateral Procedure: REMOVAL OF RIGHT BREAST IMPLANT, REMOVAL OF LEFT BREAST IMPLANT; Surgeon: Padilla Alvarez MD; [facility]; Service: PLS - PLASTIC SURGERY Medical devices from this surgery are in the Medical Devices section. VT TISSUE REHEATER PLACEMENT BREAST RECONSTRUCTION 01/20/2021 Breast/Bilateral Procedure: RECONSTRUCTION OF RIGHT BREAST WITH TISSUE REHEATER, RECONSTRUCTION OF LEFT BREAST WITH TISSUE REHEATER; Surgeon: Padilla Alvarez MD; [facility]; Service: PLS - PLASTIC SURGERY Medical devices from this surgery are in the Medical Devices section. VT REPLACEMENT TISSUE EXPAND ER W/PERMANENT IMPLANT 07/17/2021 Breast/Bilateral Procedure: REPLACEMENT OF TISSUE REHEATER WITH PERMANENT PROSTHESIS; Surgeon: Padilla Alvarez MD; [facility]; Service: PLS - PLASTIC SURGERY Medical devices from this surgery are in the Medical Devices section. VT REVISION FIDE-IMPLANT CAPSULE BREAST 07/17/2021 Breast/Bilateral Procedure: OPEN PERIPROSTHETIC CAPSULECTOMY OF BREAST; Surgeon: Padilla Alvarez MD; [facility]; Service: PLS - PLASTIC SURGERY Medical devices from this surgery are in the Medical Devices section. VT REVISION OF RECONSTRUCTED BREAST 12/18/2021 Breast/Left Procedure: REVISION OF RECONSTRUCTED BREAST LEFT BREAST IMPLANT EXCHANGE; Surgeon: Padilla Alvarez MD; [facility]; Service: PLS - PLASTIC SURGERY Medical devices from this surgery are in the Medical Devices section. VT REVISION FIDE-IMPLANT CAPSULE BREAST 12/18/2021 Breast/Left Procedure: OPEN PERIPROSTHETIC CAPSULECTOMY OF BREAST, CAPSULOTOMY; Surgeon: Padilla Alvarez MD; Location[facility]; Service: PLS - PLASTIC SURGERY Medical devices from this surgery are in the Medical Devices section. Medical History Medical History Date Comments Atrial fibrillation Cholelithiasis without obstruction Hypertension Hypertensive heart failure Transient cerebral ischemia alf dual antiplatelet drug therapy indicated On xarelto for afib/aflutter Unspecified ovarian cysts Basal cell carcinoma - primary M ultiple locations face, neck shoulder Fracture of tibia Osteoporosis Family History Medical History Relation Name Comments Lung cancer Brother TOB+dx 65s Melanoma Brother Dx: mid 50s Tx: surgery On face and arms Basal cell carcinoma Daughter 1 Recentl y removed from chest. Basal cell carcinoma Daughter 2 Sun exp osure Pancreatic cancer Father dx: 65 Lung cancer Maternal Grandfather TOB+ Breast cancer Mother dx 50s Doing w ell Melanoma Mother Several timesSh oulder and back Tx: surgery Melanoma Niece Thigh dx 17-18 Colon cancer Paternal Uncle 1 dx 40s Basal cell carcinoma Sister Relation Name Status Comments Brother (Age 67) d. VT Daughter 1 Alive Daughter 2 Alive Father (Age 70) d. pancrea tic cancerColonoscopies - regularly Grandchild n=4 Alive Maternal Grandfather (Age 80s) d . cancer Maternal Grandmother (Age 80s) Maternal Uncle (Age 40s) d. VT Mother Alive MICHELLE/BSO - unsur e Niece Alive Niece/Nephew 1 n=2 Alive Niece/Nephew 2 n=3 Alive Paternal Aunt 1 (Age 70-80) No cancer history Paternal Aunt 2 (Age 70-80) No cancer history Paternal Cousin n= all pat cousins Alive No cancer history Paternal Grandfather (A ge 70-80s) No cancer history Paternal Grandmother (A ge 70-80s) No cancer history Paternal Uncle 1 (Age 40s) d. 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 Gender Identity Not on file Sexual Orientation Not on file Obstetrics History Para Term AB IAB SAB Ectopic Multiple Livin g Live Births 4 3 Date Outcome GA Total Labor Labor/2nd/3rd Weight Sex Type Anes PTL Karen A1 A5 Name Clin Para Para Para Comments Age of parity: 14 Age of menarche: 10 OCP: 15 years HRT: 10 years Fertility treatments: none : 5 months Menopausal status: post Last Filed Vital Signs Vital Sign Reading Time Taken Comments Blood Pressure 171/92 08/25/2024 9:45 AM CDT Pulse 74 08/25/2024 9:44 AM CDT Temperature 36.6 °C (97.8 °F) 08/25/2024 9:44 AM CD T Respiratory Rate 18 08/25/2024 9:44 AM CDT Oxygen Saturation - - Inhaled Oxygen Concentration - - Weight 74.8 kg (164 lb 14.5 oz) 08/25/2024 9:44 AM CDT Height - - Body Mass Index 24.99 09/21/2023 9:38 AM CDT Plan of Treatment Upcoming Encounters Date Type Department Care Team (Late st Contact Info) Description 01/09/2025 9:40 AM CDT Follow-Up MD [facility] in [facility] [address] [facility] [address] [place] [address] Vida Devlin MD [address] [place] [address] [email or web address] 03/09/2025 11:00 AM 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 Follow-Up MD [facility] in [facility] [address] [facility] [address] [address] [place] [address] Vida Devlin MD [facility] [place] [address] [email or web address] 07/18/2025 9:15 AM CDT Follow-Up MD [facility] in [facility] [address] [place] [address] Padilla Alvarez MD [address] [place] [address] [email or web address] Health Maintenance Due Date Last Done Comments Pneumococcal Vaccine: 50+ Ye ars (1 of 1 - PCV) 06/21/2003 COVID-19 Vaccine (3 - Moderna risk series) 07/12/2020 06/14/2020, 05/18/2020 Influenza Vaccine (#1) 2024 Medical Devices Implanted Type Area Machine Oiler Device Identifier Shelf Expiration Date Model / Serial / Lot Breast Implant Scf-650 - [id number] Implanted:Qty: 1 on 07/17/2021 by Padilla Alvarez MD at [facility] Breast Left: Breast [employer] [id number] 10/10/2025 SCF-650 / [id number] / [id number] Breast Implant [facility]-650 - [id number] Implanted:Qty: 1 on 07/17/2021 by Padilla Alvarez MD at [facility] Breast Right: Breast [employer] [id number] 04/20/2022 SCF-650 / [id number] / [id number] Breast Implant [facility]-650 - [id number] Implanted:Qty: 1 on 12/18/2021 by Padilla Alvarez MD at [facility] Breast Left: Breast [employer] [id number] 01/18/2023 SCF-650 / [id number] / [id number] Nevro Nerve Stimulator-01/2023 Implanted:02/17 (Quantity not on file) Nerve Stimulator Spine Description:SWETHA# IPG- Model- [id number], SERIAL #[id number] LEAD- MODEL- [id number], SERIAL #[id number] LEAD- MODEL- [id number], SERIAL #[id number] ANCHOR - MODEL - [id number], SERIAL # [id number] ALL IMPLANTED 02/26/23 REV R IFU [email or web address] 09/01/24-Per email with radiologist Dr. Harry Yoder MRI BRAIN-AOLICIA "Yes, please proceed with parameters confirmed by physics" 09/01/24-Per email with physicist Dr. Nathaniel Claudio MRI BRAIN -AOLICIA Use patient controller to run impedance check and turn stim off/MR Mode 1.5T Normal Operating Mode using head receive coil with landmark isocenter in zone B No elevated body temperature 30min active scan time with 60min wait in between Explanted Type Area Machine Oiler Device Identifier Shelf Expiration Date Model / Serial / Lot Xpd Tiss 14x14.5cm 650cc Sty 133s Smth Sut Tab Chuck - [id number] Implanted:Qty: 1 on 01/20/2021 by Padilla Alvarez MD at [facility] Breast Right: Breast [employer] 12/15/2023 133S-FX- 14-T / [id number] / [id number] Description:Progress Notes b Vida Lyon MD 03/31/2022 Procedure: REMOVAL OF RIGHT BREAST IMPLANT, REMOVAL OF LEFT BREAST IMPLANT; Surgeon: Padilla Alvarez MD; Location: [facility]; Service: PLS - PLASTIC SURGERY VT REPLACEMENT TISSUE REHEATER W/PERMANENT IMPLANT Bilateral 07/17/2021 Procedure: REPLACEMENT OF TISSUE REHEATER WITH PERMANENT PROSTHESIS; Surgeon: Padilla Alvarez MD; Location: [facility]; Service: PLS - PLASTIC SURGERY VT REVISION OF RECONSTRUCTED BREAST Left 12/18/2021 Xpd Tiss 14x14.5cm 650cc Sty 133s Smth Sut Tab Chuck - [id number] Implanted:Qty: 1 on 01/20/2021 by Padilla Alvarez MD at [facility] Breast Left: Breast [employer] [id number] 01/21/2024 133S-FX- 14-T / [id number] / [id number] Description:Progress Notes Vida Bates MD 03/31/2022 Procedure: REMOVAL OF RIGHT BREAST IMPLANT, REMOVAL OF LEFT BREAST IMPLANT; Surgeon: Padilla Alvarez MD; Location: [facility]; Service: PLS - PLASTIC SURGERY VT REPLACEMENT TISSUE REHEATER W/PERMANENT IMPLANT Bilateral 07/17/2021 Procedure: REPLACEMENT OF TISSUE REHEATER WITH PERMANENT PROSTHESIS; Surgeon: Padilla Alvarez MD; Location: [facility]; Service: PLS - PLASTIC SURGERY VT REVISION OF RECONSTRUCTED BREAST Left 12/18/2021 Procedures Procedure Name Priority Date/Time Associated Diagnosis Comments MRI BRAIN W WO CONTRAST Routine 09/12/2024 12:27 PM CDT Headache, not otherwise specified CT CHEST ABDOMEN PELVIS W CONTRAST Routine 09/01/2024 10:28 AM CDT Infiltrating duct carcinoma, NOS of upper-inner quadrant of breast <Female; Right> Fatigue POC CREATININE Routine 09/01/2024 10:00 AM CDT after 12/05/2023 Results * MRI Brain with and without Contrast (09/12/2024 12:27 PM CDT) Anatomical Region Laterality Modality Head Magnetic Resonan ce 09/12/2024 1:15 PM CDT Impressions 09/12/2024 1:17 PM CDT 1. No intracranial metastasis. 2. No MRI findings suggestive of cause of headache. ACTIONABLE ITEMS/RECOMMENDATIONS*: None. *An Actionable Finding is a finding that may be unrelated to the original reason for imaging but potentially actionable, meaning further investigation may be necessary. The Actionable Findings Vigilance Unit (AFVU) assists medical providers with responding to additional radiologic findings that are unexpected and potentially actionable. Narrative 09/12/2024 1:17 PM CDT FULL RESULT: Examination: MRI BRAIN W WO CONTRAST on 09/12/2024 12:27 PM. CLINICAL HISTORY: Headache, not otherwise specified INDICATION: Neoplasm detection or diagnostic workup COMPARISON: None. TECHNIQUE: MRI of the brain without and with IV contrast was performed. FINDINGS: Intracranial: There is no worrisome parenchymal or leptomeningeal enhancement. There is no acute hemorrhage or acute infarct. There is no mass effect or midline shift. There is mild diffuse cerebral volume loss. The ventricles are normal size given degree of volume loss.. There is no sellar or suprasellar abnormality. Bone: There are no suspicious calvarial or skull base lesions. Extracranial: The orbits are unremarkable. The mastoid and visualized paranasal sinuses are predominantly clear. Procedure Note Eric Linares MD - 09/12/2024 FULL RESULT: Examination: MRI BRAIN W WO CONTRAST on 09/12/2024 12:27 PM. CLINICAL HISTORY: Headache, not otherwise specified INDICATION: Neoplasm detection or diagnostic workup COMPARISON: None. TECHNIQUE: MRI of the brain without and with IV contrast was performed. FINDINGS: Intracranial: There is no worrisome parenchymal or leptomeningeal enhancement. There is no acute hemorrhage or acute infarct. There is no mass effect or midline shift. There is mild diffuse cerebral volume loss. The ventricles are normal sizegiven degree of volume loss.. There is no sellar or suprasellar abnormality. Bone: There are no suspicious calvarial or skull base lesions. Extracranial: The orbits are unremarkable. The mastoid and visualized paranasal sinuses are predominantly clear. IMPRESSION: 1. No intracranial metastasis. 2. No MRI findings suggestive of cause of headache. ACTIONABLE ITEMS/RECOMMENDATIONS*: None. *An Actionable Finding is a finding that may be unrelated to the originalreason for imaging but potentially actionable, meaning furtherinvestigation may be necessary. The Actionable Findings Vigilance Unit(AFVU) assists medical providers with responding to additional radiologicfindings that are unexpected and potentially actionable. Jaylyn Utgustavop PSYCH ASSISTANT [facility] MRI ORDERABLES Final Result * CT Chest Abdomen Pelvis with Contrast (09/01/2024 10:28 AM CDT) Anatomical Region Laterality Modality Abdomen, Pelvis, Chest Computed Tomography 09/02/2024 9:53 AM CDT Impressions 09/02/2024 10:32 AM CDT 1. Nonspecific nidus of low dense tissue, right hepatic lobe. Recommend comparison with prior studies or MRI for further evaluation. 2. No evidence for thoracic metastatic disease. ACTIONABLE ITEMS/RECOMMENDATIONS*: None. *An Actionable Finding is a finding that may be unrelated to the original reason for imaging but potentially actionable, meaning further investigation may be necessary. The Actionable Findings Vigilance Unit (AFVU) assists medical providers with responding to additional radiologic findings that are unexpected and potentially actionable. Narrative 09/02/2024 10:32 AM CDT FULL RESULT: Examination: CT CHEST ABDOMEN PELVIS W CONTRAST on 09/01/2024 10:28 AM. Clinical History: Infiltrating duct carcinoma, NOS of upper-inner quadrant of breast <Female; Right> Fatigue. Indication: Therapeutic response assessment, COVID-19 Not Suspected. [facility] Baseline CT imaging Comparison: None. Technique: CT CHEST ABDOMEN PELVIS W CONTRAST. Findings: CHEST: Both breasts have been resected with the implant reconstructions. No axillary, right subpectoral, low anterior neck, internal mammary, mediastinal or hilar adenopathy is seen. The left subpectoral station has superimposed contrast artifact. A couple of nonspecific 2-3 mm micronodules are present in the right upper lobe on image 31 and right middle lobe, image 92, both in series 302. No pleural effusions are present. Chronic-like subpleural interstitial changes are present in the medial basal segment of the right lower lobe, consistent with scarring. The venous collaterals in the upper left hemithorax are secondary to left subclavian vein stenosis that may be positional. Multilevel degenerative-like bone changes are present. ABDOMEN and PELVIS: On image 196 of series 301, there is a 17 mm 14 mm nidus of low dense tissue in the tip of the right hepatic lobe that is also seen on delayed image 369. Other multiple low dense foci are present throughout the liver, suspect represents cysts. The gallbladder has been resected with a mild biliary reservoir. The spleen, pancreas and adrenal glands appear normal. The kidneys demonstrate function without hydronephrosis with a low dense cortical nidus in the left kidney, consistent with a cyst. No adenopathy or ascites are seen in the abdomen or pelvis. Postoperative changes are present consistent with a gastric bypass and complete hysterectomy. The ovaries cannot be identified. Multilevel degenerative-like bone changes are present with superimposed scoliosis. Metal artifact is present from the generator neurostimulator located in the subcutaneous tissues of the left buttock. The tip is projecting at about T7/T8. Procedure Note Chandana Powell MD - 09/02/2024 FULL RESULT: Examination: CT CHEST ABDOMEN PELVIS W CONTRAST on 09/01/2024 10:28 AM. Clinical History: Infiltrating duct carcinoma, NOS of upper-inner quadrantof breast <Female; Right> Fatigue. Indication: Therapeutic response assessment, COVID-19 Not Suspected. [facility] Baseline CT imaging Comparison: None. Technique: CT CHEST ABDOMEN PELVIS W CONTRAST. Findings: CHEST: Both breasts have been resected with the implant reconstructions. No axillary, right subpectoral, low anterior neck, internal mammary,mediastinal or hilar adenopathy is seen. The left subpectoral station has superimposed contrast artifact. A couple of nonspecific 2-3 mm micronodules are present in the right upperlobe on image 31 and right middle lobe, image 92, both in series 302. No pleural effusions are present. Chronic-like subpleural interstitial changes are present in the medialbasal segment of the right lower lobe, consistent with scarring. The venous collaterals in the upper left hemithorax are secondary to leftsubclavian vein stenosis that may be positional. Multilevel degenerative-like bone changes are present. ABDOMEN and PELVIS: On image 196 of series 301, there is a 17 mm 14 mm nidus of low densetissue in the tip of the right hepatic lobe that is also seen on delayedimage 369. Other multiple low dense foci are present throughout the liver, suspectrepresents cysts. The gallbladder has been resected with a mild biliary reservoir. The spleen, pancreas and adrenal glands appear normal. The kidneys demonstrate function without hydronephrosis with a low densecortical nidus in the left kidney, consistent with a cyst. No adenopathy or ascites are seen in the abdomen or pelvis. Postoperative changes are present consistent with a gastric bypass andcomplete hysterectomy. The ovaries cannot be identified. Multilevel degenerative-like bone changes are present with superimposedscoliosis. Metal artifact is present from the generator neurostimulator located inthe subcutaneous tissues of the left buttock. The tip is projecting at about T7/T8. IMPRESSION: 1. Nonspecific nidus of low dense tissue, right hepatic lobe. Recommendcomparison with prior studies or MRI for further evaluation. 2. No evidence for thoracic metastatic disease. ACTIONABLE ITEMS/RECOMMENDATIONS*: None. *An Actionable Finding is a finding that may be unrelated to the originalreason for imaging but potentially actionable, meaning furtherinvestigation may be necessary. The Actionable Findings Vigilance Unit(AFVU) assists medical providers with responding to additional radiologicfindings that are unexpected and potentially actionable. Vida Devlin MD IMChen CT ORDERABLES Final Re sult * POC Creatinine (09/01/2024 10:00 AM CDT) POC Creatinine 0.9 0.6 - 1.3 mg/dL 09/01/2024 10:02 AM CDT [facility] Comment:Medications, especia lly hydroxyurea or supplements, such as ascorbate, can interfere with test results causing a falsely and significantly higher result than expected. If a problem is suspected with a patient's result, a sample should be sent to the laboratory for confirmatory testing. POC eGFR 68 >=60 mL/min/1.7 3 sq. m 09/01/2024 10:02 AM CDT [facility] Comment: The eGFRcr is calculated with the 2020 CKD-EPI creatinine equation using creatinine, patient's age, and sex for adults 18 years of age and older. Other factors, especially muscle mass, may affect accuracy and need to be considered. According to the Kidney Disease: Improving Global Outcomes (KDIGO) CKD Work Group 2012 Clinical Practice Guideline, chronic kidney disease (CKD) is defined as the abnormalities of kidney structure or function, present for more than 3 months, with implications for health. CKD should be classified by cause, GFR category, and albuminuria category. KDIGO guidelines provide the following GFR categories. Stage / Description / GFR mL/min/1.73 m2: G1* / Normal or high / >= 90 G2* / Mildly decreased / 60-89 G3a / Mildly to moderately decreased / 45-59 G3b / Moderately to severely decreased / 30-44 G4 / Severely decreased / 15-29 G5 / Kidney failure / <15 *In the absence of evidence of kidney damage, neither G1 nor G2 fulfill criteria for CKD. Blood 09/01/2024 10:0 0 AM CDT 09/01/2024 10:02 AM CDT Narrative [facility] - 09/01/2024 10:02 AM CDT Method description: The i-STAT is an analyzer used for in vitro quantification of various analytes in whole blood. The device uses a single disposable cartridge which contains microfabricated sensors, a calibration solution, fluidics system, and a waste chamber. Each test cartridge contains chemically sensitive biosensors on a silicon chip that are configured to perform specific tests. The microfabricated sensors measure analyte concentration by an electrochemical assay. us Vida Devlin MD POCT ORDERABLES - DEVICE F inal Result [facility] Unless otherwise noted, all lab tests performed by: Division of Pathology and Laboratory Medicine [address] [place] [id number] after 12/05/2023 Insurance MEDICARE PART A AND B [facility] MEDICARE PART A AND B [employer] [facility] Advance Directives * Full Code (Latest Code Status on File) Date Activated Date Inactivated Comments 09/01/2024 9:01 AM Update based o n Advanced Directive Documentation * Full Code Date Activated Date Inactivated Comments 01/20/2021 1:59 PM 01/21/2021 11:33 AM Care Teams Creative Writing English Professor Relationship Specialty Start Date End Date Bernarda Bowden MD [email or web address] PCP - External Referring Obstetrics/Gynecology 12/17/20 Jelani Torres MD [address] [place] [id number] [email or web address] PCP - General Breast Surgery 12/18/20 Sushma Lewis MD [address] [place] [id number] [email or web address] Consulting Physician Dermatology 02/03/21 Padilla Alvarez MD [address] [place] [id number] [email or web address] Consulting Physician Plastic and Reconstructive Surgery 01/08/21 Ynes Shafer MD [address] [place] [id number] [email or web address] Consulting Physician Internal Medicine 01/08/21 Vida Devlin MD [address] [place] [phone] [email or web address] Consulting Physician Breast Medical Oncology 01/29/21 Yaritza Solano MD [address] [place] [phone] [email or web address] Consulting Physician Psychiatry 08/15/21
[2024-12-04] MEDS ORDERED: MORPHINE 4 MG/ML SYR ONE ×3 (11:17→17:40)
[2024-12-04 11:32] LABS: Absolute Lymphocytes (CBC) 0.7 K/uL (0.7-4.9); Hematocrit 30.4 % (36.0-45.0); Hemoglobin 9.9 g/dL (12.0-15.0); MCH 27.3 pg (27.0-35.0); MCHC 32.6 g/dL (32.0-36.0); MCV 83.7 fL (80-100); MPV 7.0 fL (7.6-11.3); Nucleated RBC Absolute Count 0.0 (0-0); Nucleated Red Blood Cells % 0.0 % (0-0); RBC Red Blood Cell Count 3.63 M/uL (3.86-4.86); White Blood Count 6.40 thou/uL (4.3-10.9)
[2024-12-04 11:42] LABS: Anion Gap 10.7 mEq/L (5.0-15.0); BUN Blood Urea Nitrogen 12.0 mg/dL (7-18); Glucose Level 97.0 mg/dL (74-106); Potassium 3.7 mEq/L (3.5-5.1)
--- NOTE | 2024-12-04 12:04 | RAD REPORT ---
EXAMINATION: Hip Right 2 View VIEWS: Two views CLINICAL INDICATION: Female, 69 years old. fall;Pain RIGHT COMPARISON: 12/02/2021 IMPRESSION: Offset as well as some sclerosis at the right subcapital femoral neck could be secondary to an age in determinant femoral neck fracture. CT could better evaluate if an acute femoral neck fracture is present. MRI could better assess if a subacute or chronic injury is suspected. Screws traverse the SI joints.
--- NOTE | 2024-12-04 12:53 | RAD REPORT ---
EXAMINATION: Pelvis Wo Cont CLINICAL INDICATION: Female, 69 years old. fall, hip pain TECHNIQUE: CT pelvis was performed, without IV contrast, as per department protocol. Axial, sagittal and coronal reconstructions were obtained. One or more of the following dose reduction techniques were used: Automated exposure control, adjustment of the mA and/or kV according to patient size, and/ or iterative reconstruction. Unless otherwise specified, incidental findings do not require dedicated imaging follow-up. [id number]. IV CONTRAST: Not administered. COMPARISON: Same-day radiograph FINDINGS: Mildly displaced and impacted acute right subcapital femoral neck fracture. No dislocation. No other pelvic fractures are identified. The left hip is intact. Fusion hardware in the lumbar spine with screws traversing the SI joints. Spinal stimulator. No other acute findings identified. IMPRESSION: Mildly displaced impacted right subcapital femoral neck fracture.
--- NOTE | 2024-12-04 14:22 | ER ---
Nurse's Notes [facility] Name: Doris Saleh Age: 69 yrs Sex: Female : 1955 Arrival Date: 12/04/2024 Time: 10:51 Bed 4 Private MD: Diagnosis: Fall on same level, unspecified;Anemia, unspecified;Right Subcapital Femoral Neck fracture Presentation: 12/04 11:01 Chief complaint: EMS states: Slipped while ambulating with walker last night, c/o hb severe right hip pain and unable to straighten right knee. 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 Coronavirus screen: At this time, the client does not indicate any symptoms associated with coronavirus-19. Ebola Screen: No symptoms or risks identified at this time. Initial Sepsis Screen: Does the patient meet any 2 criteria? No. Patient's initial sepsis screen is negative. Does the patient have a suspected source of infection? No. Patient's initial sepsis screen is negative. Risk Assessment: Do you want to hurt yourself or someone else? Patient reports no desire to harm self or others. Onset of symptoms was December 03, 2024. 11:01 Method Of Arrival: [facility] hb 11:01 Acuity: CALI 3 hb Triage Assessment: 11:05 General: Appears in no apparent distress. Behavior is calm, cooperative. Pain: Pain hb currently is 5 out of 10 on a pain scale. EENT: No signs and/or symptoms were reported regarding the EENT system. Neuro: Level of Consciousness is awake, alert, obeys commands, Oriented to person, place, time, situation. Cardiovascular: Patient's skin is warm and dry. Respiratory: Respiratory effort is even, unlabored, Respiratory pattern is regular, symmetrical. GI: No signs and/or symptoms were reported involving the gastrointestinal system. : No signs and/or symptoms were reported regarding the genitourinary system. Derm: Skin is pink, warm \T\ dry. Musculoskeletal: right leg shortened and externally rotated, limited ROM Reports right hip pain. Historical: - Allergies: 11:04 Sulfa (Sulfonamide Antibiotics); hb - PMHx: 11:03 Atrial Fib; Hypertension; hb - PSHx: 11:04 Back; hb - Immunization history:: Adult Immunizations up to date. - Infectious Disease History:: Denies. - Social history:: Smoking status: Patient denies any tobacco usage or history of. Screenin:06 [facility] ED Fall Risk Assessment (Adult) History of falling in the last 3 months, hb including since admission Yes- single mechanical fall (1 pt) Confusion or Disorientation No (0 pts) Intoxicated or Sedated Yes (3 pts) Impaired Gait Yes (1 pt) Mobility Assist Device Used Yes (1 pt) Altered Elimination No (0 pt) Score/Fall Risk Level 3 or more points = High Risk Oriented to surroundings, Maintained a safe environment, Educated pt \T\ family on fall prevention, incl call for assistance when getting out of bed. Abuse screen: Denies threats or abuse. Denies injuries from another. Nutritional screening: No deficits noted. Tuberculosis screening: No symptoms or risk factors identified. Assessment: 11:06 General: See triage assessment . hb 12:06 Reassessment: Patient appears in no apparent distress at this time. Patient and/or hb family updated on plan of care and expected duration. Pain level reassessed. Patient is alert, oriented x 3, equal unlabored respirations, skin warm/dry/pink. 13:31 Reassessment: Patient appears in no apparent distress at this time. Patient is alert, bp oriented x 3, equal unlabored respirations, skin warm/dry/pink. 15:00 Reassessment: TRANSFER INITIATED. bp 17:36 Reassessment: REPORT TO [facility] [place] [id number]. bp 19:02 Reassessment: PT OFELIA WITH EMS. bp Vital Signs: 11:01 BP 158 / 84; Pulse 80; Resp 16; Temp 98.3; Pulse Ox 100% on R/A; Weight 65.77 kg; hb Height 5 ft. 4 in. ; Pain 5/10; 11:23 BP 158 / 84; Pulse 73; Resp 15; Pulse Ox 99% on R/A; hb 12:07 BP 133 / 78; Pulse 78; Resp 16; Pulse Ox 99% ; hb 13:29 BP 128 / 76; Pulse 77; Resp 16; Pulse Ox 98% ; bp 14:22 BP 130 / 69; Pulse 78; Resp 16; Pulse Ox 97% on R/A; hb 17:32 BP 160 / 90; Pulse 85; Resp 16; Pulse Ox 98% ; bp 11:01 Body Mass Index 24.89 (65.77 kg, 162.56 cm) hb 11:01 Pain Scale: Adult hb ED Course: 11:01 Patient arrived in ED. hb 11:02 Severiano Cobb DO is Attending Physician. dr5 11:03 Triage completed. hb 11:05 Arm band placed on. hb 11:06 Patient has correct armband on for positive identification. Bed in low position. Call hb light in reach. Provided Education on: call light . 11:06 Maintain EMS IV. Dressing intact. Good blood return noted. Site clean \T\ dry. Gauge \T\ hb site: 20g LAC. 11:23 BMP Sent. hb 11:23 CBC with Diff Sent. hb 11:24 Initial lab(s) drawn, by me, sent to lab. hb 11:43 Hip Right 2 View XRAY In Process Unspecified. EDMS 12:13 Sin Valentino, RN is Primary Nurse. bp 12:33 CT Pelvis wo Cont In Process Unspecified. EDMS 14:30 initiated transfer to [facility] as requested by pt. bd 16:59 EKG done, by ED staff, reviewed by Severiano Cobb DO. rk3 17:42 No provider procedures requiring assistance completed. Patient transferred, IV remains bp in place. 17:53 pt accepted in transfer to [facility] by dr Brito admin approval bd given by Radha Vallejo pt going to [phone]. Administered Medications: 11:23 Drug: morphine IVP or IV 4 mg IVP once over 4 mins Route: IVP; Infused Over: 4 mins; hb Site: left antecubital; 14:20 Follow up: Response: No adverse reaction bp 17:37 Follow up: Response: No adverse reaction bp 12:27 Drug: morphine IVP or IV 4 mg IVP once over 4 mins Route: IVP; Infused Over: 4 mins; bp Site: left forearm; 14:20 Follow up: Response: No adverse reaction bp 17:37 Follow up: Response: No adverse reaction bp 17:42 Drug: morphine IVP or IV 4 mg IVP once over 4 mins Route: IVP; Infused Over: 4 mins; bp Site: left antecubital; 17:42 Follow up: Response: No adverse reaction bp Medication: 11:06 VIS not applicable for this client. hb Outcome: 14:21 ER care complete, transfer ordered by ms3 17:36 Transferred by ground EMS Note: [facility] bp 17:36 Condition: stable 17:36 Instructed on the need for transfer, 19:02 Patient left the ED. bp Signatures: Dispatcher [employer] EDMS Lottie Nicholson Heather, RN RN hb Sin Valentino, RN RN bp Severiano Cobb, DO ms3 Rex Raya, REED REPAIRER-C REED REPAIRER-Cdr5 Ernesto Lee rk3 Corrections: (The following items were deleted from the chart) 11:05 11:03 Allergies: Sulfa (Sulfonamide Antibiotics); hb hb 11:05 11:03 PSHx: Back (Hypertension); hb hb 11:05 11:04 Allergies: Sulfa (Sulfonamide Antibiotics); hb hb 11:05 11:04 Allergies: Sulfas; hb hb
--- NOTE | 2024-12-04 14:22 | EDPHYS ---
Physician Documentation [facility] Name: Doris Saleh Age: 69 yrs Sex: Female : 1955 Arrival Date: 12/04/2024 Time: 10:51 Bed 4 Private MD: ED Physician Severiano Cobb HPI: 12/04 14:23 This 69 yrs old Female presents to ER via EMS with complaints of Hip Injury. ms3 14:23 69-year-old female with past medical history of atrial fibrillation, hypertension ms3 presents to the emergency department via [facility] status post fall with right hip pain. Patient states she fell last night after slipping and her helped her back to bed. Patient has continued pain since that time. Patient states her discomfort is rated a 4/10. EMS administered 50 mcg of fentanyl x 2 and 1 g of Tylenol IV. Patient states she is unable to straighten out her leg.. Historical: - Allergies: 11:04 Sulfa (Sulfonamide Antibiotics); hb - PMHx: 11:03 Atrial Fib; Hypertension; hb - PSHx: 11:04 Back; hb - Immunization history:: Adult Immunizations up to date. - Infectious Disease History:: Denies. - Social history:: Smoking status: Patient denies any tobacco usage or history of. ROS: 14:23 Constitutional: Negative for fever, and chills. Cardiovascular: Negative for chest ms3 pain, and palpitations. Respiratory: Negative for shortness of breath, cough, wheezing, and pleuritic chest pain, Abdomen/GI: Negative for abdominal pain, nausea, vomiting, diarrhea, and constipation, 14:23 MS/extremity: Positive for Right hip pain, Exam: 14:23 Constitutional: This is a well developed, well nourished patient who is awake, alert, ms3 and in no acute distress. Cardiovascular: Regular rate and rhythm with a normal S1 and S2. No gallops, murmurs, or rubs. Normal PMI, no JVD. No pulse deficits. Respiratory: Lungs have equal breath sounds bilaterally, clear to auscultation and percussion. No rales, rhonchi or wheezes noted. No increased work of breathing, no retractions or nasal flaring. Abdomen/GI: Soft, non-tender, with normal bowel sounds. No distension or tympany. No guarding or rebound. No evidence of tenderness throughout. Skin: Warm, dry with normal turgor. Normal color with no rashes, no lesions, and no evidence of cellulitis. 14:23 Musculoskeletal/extremity: Extremities: noted in the Right hip: decreased ROM, pain, tenderness, 16:59 ECG was reviewed by the Attending Physician. ms3 Vital Signs: 11:01 BP 158 / 84; Pulse 80; Resp 16; Temp 98.3; Pulse Ox 100% on R/A; Weight 65.77 kg; hb Height 5 ft. 4 in. ; Pain 5/10; 11:23 BP 158 / 84; Pulse 73; Resp 15; Pulse Ox 99% on R/A; hb 12:07 BP 133 / 78; Pulse 78; Resp 16; Pulse Ox 99% ; hb 13:29 BP 128 / 76; Pulse 77; Resp 16; Pulse Ox 98% ; bp 14:22 BP 130 / 69; Pulse 78; Resp 16; Pulse Ox 97% on R/A; hb 17:32 BP 160 / 90; Pulse 85; Resp 16; Pulse Ox 98% ; bp 11:01 Body Mass Index 24.89 (65.77 kg, 162.56 cm) hb 11:01 Pain Scale: Adult hb MDM: 11:06 Medical Screening Exam initiated ms3 14:23 ED course: Patient requests to be transferred to [facility]. ms3 14:23 Differential diagnosis: hip fracture, intertrochanteric fracture, femoral neck ms3 fracture, femoral shaft fracture, strain. Data reviewed: vital signs, nurses notes, lab test result(s), radiologic studies, CT scan, plain films, and as a result, I will Transfer patient. I considered the following discharge prescriptions or medication management in the emergency department Medications were administered in the Emergency Department. See MAR. Independent interpretation of the following test(s) in the Emergency Department CT Scan: My interpretation is CT of pelvis reviewed by me reveals right hip fracture. Historians other than the Patient: EMS: Conrad Lance. Counseling: I had a detailed discussion with the patient and/or guardian regarding the historical points, exam findings, and any diagnostic results supporting the discharge/admit diagnosis, lab results, radiology results, the need to transfer to another facility, [facility] does not immediately have the required specialist. 17:10 Independent interpretation of the following test(s) in the Emergency Department EKG: ms3 See my EKG interpretation above. ED course: Discussed case with Dr Pratt and he will see if someone in his group can take the case. He will notify transfer center of acceptance if someone can take case. . 12/04 11:06 Order name: CBC with Diff; Complete Time: 12:12 ms3 12/04 11:06 Order name: BMP; Complete Time: 12:12 ms3 12/04 11:06 Order name: Hip Right 2 View XRAY; Complete Time: 12:12 ms3 12/04 12:13 Order name: CT Pelvis wo Cont; Complete Time: 12:58 ms3 12/04 16:38 Order name: EKG; Complete Time: 16:38 ms3 EC:59 Rate is 66 beats/min. Rhythm is regular. Left axis deviation noted. KS interval is ms3 normal. QRS interval is normal. Clinical impression: NSR w/ Non-specific ST/T Changes. Interpreted by me. Reviewed by me. Administered Medications: 11:23 Drug: morphine IVP or IV 4 mg IVP once over 4 mins Route: IVP; Infused Over: 4 mins; hb Site: left antecubital; 14:20 Follow up: Response: No adverse reaction bp 17:37 Follow up: Response: No adverse reaction bp 12:27 Drug: morphine IVP or IV 4 mg IVP once over 4 mins Route: IVP; Infused Over: 4 mins; bp Site: left forearm; 14:20 Follow up: Response: No adverse reaction bp 17:37 Follow up: Response: No adverse reaction bp 17:42 Drug: morphine IVP or IV 4 mg IVP once over 4 mins Route: IVP; Infused Over: 4 mins; bp Site: left antecubital; 17:42 Follow up: Response: No adverse reaction bp Disposition Summary: 12/04/24 14:21 Transfer Ordered Notes: Transfer Location: Other Acute Care Facility ms3 Reason: Higher level of care ms3 Condition: Stable ms3 Problem: new ms3 Symptoms: are unchanged ms3 Accepting Physician: (12/04/24 19:02) bp Diagnosis - Fall on same level, unspecified ms3 - Anemia, unspecified ms3 - Right Subcapital Femoral Neck fracture ms3 Forms: - Medication Reconciliation Form ms3 - SBAR form ms3 Signatures: Dispatcher [employer] EDMS Winnie Pickering, RN RN hb Sin Valentino, RN RN bp Severiano Cobb DO DO ms3 Corrections: (The following items were deleted from the chart) 11: 11:03 Allergies: Sulfa (Sulfonamide Antibiotics); hb hb 11:05 11:03 PSHx: Back (Hypertension); hb hb 11:05 11:04 Allergies: Sulfa (Sulfonamide Antibiotics); hb hb 11: 11:04 Allergies: Sulfas; hb hb 14:22 14:21 Dr ms3 ms3 14:23 14:22 Dr ms3 ms3 17:11 16:59 ED course: Patient states she would like to try to go to [facility] at ms3 this time. Will initiate transfer to [facility]. ms3 19:02 14:23 Dr ms3 bp
[2024-12-05 00:20] VITALS: TEMP 98.3
[2024-12-05 00:29] VITALS: BP 160/90; O2SAT 98
== END 2024-12-04 19:02 ==
LOC: ER 10:51
DX: S72.011A Unspecified intracapsular fracture of right femur, initial encounter for closed fracture (principal); D64.9 Anemia, unspecified; W18.30XA Fall on same level, unspecified, initial encounter
CPT/HCPCS: 36415; 72192; 80048; 85025; 93005; 99285